=== PATIENT | male | born 1950 | race Caucasian/White ===

== ENCOUNTER → 2018-01-01 | Outpatient (CLI) | payer OTHER ==
[~2018-01-01] MED LIST: IOPAMIDOL (ISOVUE 370) 100 ML BTL IV ONE
== END ==
LOC: FIMAGING 13:19
PROVIDERS: ATTEND Internal Medicine Cardiovascular Disease
DX: Z03.89 Encounter for observation for other suspected diseases and conditions ruled out (principal)
CPT/HCPCS: 82565-PO; Q9967

== ENCOUNTER 2018-01-08 11:19 | Observation (INO) | payer OTHER ==
[2018-01-08] MEDS ORDERED: NS 1,000 ML IV ONE (11:22)
[2018-01-08 12:04] LABS: PLATELET COUNT 168 10^3/uL (150-400)
[2018-01-08] MEDS ORDERED: LIDOCAINE 1% 300 MG/30 ML SDV ONE (12:07)
[2018-01-08] MEDS ORDERED: HEPARIN 10,000 UNIT/10 ML MDV (1,000 UNIT/ML) ONE (12:07)
[2018-01-08] MEDS ORDERED: HEPARIN/DEXTROSE 25,000 UNIT/500 ML BAG ONE (12:07)
[2018-01-08] MEDS ORDERED: BUPIVACAINE 0.75% 10 ML SDV ONE (12:08)
[2018-01-08] MEDS ORDERED: IOPAMIDOL (ISOVUE-300) 100 ML BTL ONE (12:08)
[2018-01-08 12:11] LABS: INR 1.04 (0.83-1.16); PROTIME(PATIENT) 13.8 SEC (12.0-15.0)
--- NOTE | 2018-01-08 12:47 | PDGENHP ---
History & Physical Chief Complaint: symptomatic afib Relevant Physical Exam: s1s2. cta. ao3 Cardiorespiratory Assessment: for cb pvi
[2018-01-08] MEDS ORDERED: MIDAZOLAM 2 MG/2 ML VIAL IVP ONE (13:02)
--- NOTE | 2018-01-08 13:04 | PDANEPAE ---
ANE History of Present Illness afib ep ANE Past Medical History - Cardiovascular History Hx Hypertension: No Hx Arrhythmias: Yes Hx Chest Pain: No Hx Coronary Artery / Peripheral Vascular Disease: No Hx CHF / Valvular Disease: No Hx Palpitations: No - Pulmonary History Hx COPD: No Hx Asthma/Reactive Airway Disease: No Hx Recent Upper Respiratory Infection: No Hx Oxygen in Use at Home: No Hx Sleep Apnea: No - Neurologic History Hx Cerebrovascular Accident: No Hx Seizures: No Hx Dementia: No - Endocrine History Hx Diabetes: No Hypothyroid: No Hyperthyroid: No - Renal History Hx Renal Disorders: No - Liver History Hx Hepatic Disorders: No - Neurological & Psychiatric Hx Hx Neurological and Psychiatric Disorders: No - Chronic Pain History Chronic Pain: No ANE Review of Systems Review of Systems: - Exercise capacity Exercise capacity: >=4 METS ANE Patient History - Allergies Allergies/Adverse Reactions: Penicillins Allergy (Verified 01/04/18 09:55) Unknown - Home Medications Home Medications: Cholecalciferol (Vitamin D3) [Vitamin D3] 4,000 unit PO DAILY 04/23/14 [Last Taken 01/07/18 07:00] Tadalafil [Cialis] 2.5 mg PO DAILY 04/23/14 [Last Taken 01/05/18 23:00] Apixaban [Eliquis] 5 mg PO BID 01/04/18 [Last Taken 01/05/18 20:00] Diltiazem HCl [Cartia Xt] 120 mg PO DAILY 01/04/18 [Last Taken 01/07/18 07:00] Herbals/Supplements -Info Only 1 ea PO DAILY 01/04/18 [Last Taken 01/07/18 07:00 ] Omeprazole 20 mg PO DAILY 01/04/18 [Last Taken 01/07/18 07:00] - NPO status NPO Status: no food or drink >8 hours - Anes Hx Anes Hx: no prior problems - Smoking Hx Smoking Status: Never smoked ANE Labs/Vital Signs - Labs Result Diagrams: 01/08/18 11:50 01/08/18 11:50 - Vital Signs Height: 180.34 cm Weight: 90.718 kg ANE Physical Exam - Airway Mallampati Score: Class 2 Mouth exam: normal dental/mouth exam - Pulmonary Pulmonary: no respiratory distress - Cardiovascular Cardiovascular: regular rate and rhythym - ASA Status ASA Status: II ANE Anesthesia Plan Anesthesia Plan: general endotracheal anesthesia
[2018-01-08] MEDS ORDERED: ROCURONIUM 50 MG/5 ML VIAL ONE (13:42)
[2018-01-08] MEDS ORDERED: DEXAMETHASONE 4 MG/ML VIAL ONE (13:42)
[2018-01-08] MEDS ORDERED: PROPOFOL/EMULSION 500 MG/50 ML BOTTLE IV ONE (13:42)
[2018-01-08] MEDS ORDERED: SUCCINYLCHOLINE CHLORIDE 200 MG/10 ML SYR IVP ONE (13:42)
[2018-01-08] MEDS ORDERED: fentaNYL 100 MCG/2 ML INJ ONE (13:42)
[2018-01-08] MEDS ORDERED: DESFLURANE 240 ML BOTTLE IH ONE (14:52)
[2018-01-08] MEDS ORDERED: PHENYLEPHRINE 10 MG/ML SDV ONE (14:55)
[2018-01-08] MEDS ORDERED: PROPOFOL 200 MG/20 ML VIAL ONE (15:27)
[2018-01-08] MEDS ORDERED: PROTAMINE SULFATE 50 MG/5 ML VIAL IVP ONE (15:53)
[2018-01-08] MEDS ORDERED: ONDANSETRON 4 MG/2 ML VIAL ONE (15:56)
[2018-01-08] MEDS ORDERED: SUGAMMADEX SODIUM 200 MG/2 ML VIAL IVP ONE (15:56)
--- NOTE | 2018-01-08 16:18 | EPPROC ---
Electrophysiology Procedure Note: ELECTROPHYSIOLOGIC STUDY AND BALLOON-CATHETER MEDIATED CRYOABLATION FOR PAROXYSMAL ATRIAL FIBRILLATION Procedures performed: 09021-80 EP evaluation with RA/RV/LA pace/record, with arrhythmia induction 31655-45 EP evaluation with RA/RV pace record, insert/reposition catheter, with arrhythmia induction 87418 Atrial fibrillation ablation Intracardiac echocardiogram Transseptal puncture Fluoroscopy INDICATION: Paroxysmal atrial fibrillation PROCEDURE: The patient arrived in the Electrophysiology Laboratory in the fasting state. The right groin, left groin and right infraclavicular area were prepped and draped in the usual sterile fashion. Anesthesiologist administered general anesthesia Dr. Stacy Patrick . All catheters were placed percutaneously using the Seldinger technique and advanced into position under fluoroscopic guidance. One #7 Italian deflectable octapolar electrode catheter was placed in the His-bundle position via the left femoral vein (2mm spacing, IVC electrode for unipolar recordings). This catheter was placed in the coronary sinus after transseptal puncture and later placed in the SVC-R subclavian vein junction to pace the right phrenic nerve during right pulmonary vein ablation. One #8 Italian AcuNaV ultrasound catheter was placed in the left femoral vein and advanced into the right atrium. One #4 Italian sheath was inserted into the left femoral artery via percutaneous technique and used for continuous arterial blood pressure monitoring and intermittent ACT determination. Programmed stimulation was performed from the right atrium, left atrium (CS) and right ventricle. There was no evidence of AV accessory pathway. Intracardiac echo evaluation of the left atrium and pulmonary veins was performed. Baseline ACT was drawn and heparin bolus was administered and heparin drip was started prior to transseptal puncture. ACT was checked every 15 minutes and maintained in the range of 350-400 seconds. One 14Fr short sheath was placed in the right femoral vein. One 8Fr SL1 sheath was advanced into the right atrium via the 14Fr short sheath. Transseptal puncture was performed under intracardiac ultrasound, fluoroscopic and hemodynamic guidance placing the sheath into the left atrium. Averill RF needle ( C0 curve) was used. The mean left atrial pressure was 9 mmHg. 3D map of left atrial and pulmonary veins was performed using PentaRay catheter. The SL1 sheath was exchanged for a Medtronic Flexcath sheath using an Amplatz stiff guide wire. A 28 mm Cryoballoon catheter with a 20 mm Achieve catheter was placed via the sheath into the left atrium. Intracardiac ultrasound and PV angiograms were used to assist in placing the mapping catheter at the antrum of the pulmonary veins. All pulmonary veins were isolated successfully using cryoballoon ablation using freeze/thaw/freeze cycles at 2-3-minute intervals, with good [id number] of isolation. Coumadin ridge/Ligament of Danny region was ablated. Pre and post pulmonary vein recordings were measured on the spiral Achieve catheter to ensure complete pulmonary vein isolation. During the right-sided ablation, phrenic nerve pacing was performed to assess the phrenic nerve strength ( manually and with ICE visualization of liver movement during phrenic capture) and the phrenic nerve was intact throughout the right-sided ablation and at the end of the procedure. An esophageal temperature probe (12 electrode, Circa) was placed by the anesthesiologist at the beginning of the procedure. Esophageal temperature was monitored continuously Cryoapplications 5 total cryoablation time 900s. ICE imaging post ablation was consistent with pre ablation imaging with no changes noted, moreover there was no left atrial/left ventricular thrombus and no pericardial effusion. The catheters were withdrawn. Protamine was given. The sheaths were removed and subcutaneous pursestring suture and manual pressure was used for hemostasis. The patient was recovered from anesthesia. There were no complications. The patient was arousable and moving all four extremities at the end of the procedure. CONCLUSIONS: 1. Paroxysmal atrial fibrillation. 2. Successful pulmonary vein isolation procedure (left and right pulmonary vein antrum) using cryoballoon ablation. 3. No apparent complications. Patient Problems: Problems Problem Status Onset Atrial fibrillation Acute
[2018-01-08] MEDS ORDERED: ALBUTEROL 3 ML DEYVIAL IH PRN (16:42)
[2018-01-08] MEDS ORDERED: ONDANSETRON 4 MG/2 ML VIAL IVP PRN (16:42)
[2018-01-08] MEDS ORDERED: NALOXONE HCL 0.4 MG/ML INJ IVP PRN (16:42)
[2018-01-08] MEDS ORDERED: fentaNYL 100 MCG/2 ML INJ IVP PRN (16:42)
--- NOTE | 2018-01-08 16:43 | POSTANESTH ---
Post Anesthetic Evaluation Cardiovascular Status: Normal, Stable Respiratory Status: Normal, Stable Level of Consciousness/Mental Status: Can Participate in Eval Pain Control: Adequate, Prn Tx Ordered Nausea/Vomiting Control: Adequate, Prn Tx Ordered Complications Possibly Related to Anesthesia: None Noted
[2018-01-09 04:25] LABS: PLATELET COUNT 178 10^3/uL (150-400)
[2018-01-09] MEDS ORDERED: APIXABAN 5 MG TAB PO SCH (09:00)
[2018-01-09] MEDS ORDERED: PANTOPRAZOLE SODIUM 40 MG TAB PO SCH (09:00)
[2018-01-09 12:11] VITALS: BP 96/55
--- NOTE | 2018-01-09 13:14 | CPEKG ---
Test Reason : OPEN Blood Pressure : / mmHG Vent. Rate : 059 BPM Atrial Rate : 060 BPM P-R Int : 177 ms QRS Dur : 135 ms QT Int : 446 ms P-R-T Axes : 044 -72 036 degrees QTc Int : 442 ms Sinus rhythm RBBB and LAFB Sinus rhythm has replaced atrial fibrillation noted on last ECG Confirmed by Lazaro Gtz ([id number]) on 01/09/2018 1:14:22 PM Referred By: Confirmed By:Lazaro Gtz
--- NOTE | 2018-01-09 13:18 | CPEKG ---
Test Reason : OPEN Blood Pressure : / mmHG Vent. Rate : 065 BPM Atrial Rate : 065 BPM P-R Int : 185 ms QRS Dur : 140 ms QT Int : 424 ms P-R-T Axes : 042 -58 013 degrees QTc Int : 441 ms Sinus rhythm RBBB and LAFB Confirmed by Lazaro Gtz ([id number]) on 01/09/2018 1:17:53 PM Referred By: Confirmed By:Lazaro Gtz
--- NOTE | 2018-01-09 13:21 | GDS ---
[f rep st] DISCHARGE SUMMARY SUPERVISING CERTIFIED NUTRITIONIST: Andi Chin MD. DIAGNOSIS ADMISSION: 1. Paroxysmal atrial fibrillation. 2. Right bundle branch block. DISCHARGE DIAGNOSIS: 1. Paroxysmal atrial fibrillation. 2. Status post cryoballoon pulmonary vein isolation procedure for atrial fibrillation ablation. 3. Right bundle branch block. PROCEDURES PERFORMED DURING HOSPITALIZATION: 1. Electrocardiogram. 2. Electrophysiology study. 3. Pulmonary vein isolation procedure using cryoballoon ablation. 4. Echocardiogram. BRIEF HISTORY: Please see H and P. Briefly, the patient is a 67-year-old male with noted history of right bundle branch block, some paroxysmal atrial fibrillation. The patient has been noted to have a history of atrial fibrillation for 10-15 years. Initially had tried beta-blockers, but did not srinivas erate them. He had been on diltiazem, but unfortunately been noted to have breakthrough arrhythmias. He has recently seen Dr. Chin, with discussion about further treatment. Patient had been given the o ptions of trying antiarrhythmic therapy with diltiazem, or cryoballoon ablation. Patient chose to un dergo cryoballoon ablation for atrial fibrillation ablation. HOSPITAL COURSE: Patient admitted through the CVC, prepped for procedure, and taken to the electroph ysiology lab. There, Dr. Chin performed electrophysiology procedure, identifying atrial fibrillation, and then performing pulmonary vein isolation procedure using cryoballoon ablation. No apparent comp lications. Patient was transferred to the ICU for overnight observation. There, he has maintained s inus rhythm with no malignant arrhythmias or pauses by continuous cardiac monitoring. He has been up walking in the unit today with no symptoms, denying any chest pain, shortness of breath, palpitation s, or lightheadedness. PHYSICAL EXAMINATION: GENERAL: Done today, medium built, well-groomed male. He is alert and oriented to person, place, time, situation. Appears to be under no acute distress. CURRENT VITAL SIGNS: Blood pressure of 96/55, heart rate of 63, respirations 12, saturating 96% on room air. LINNEA NT: Head is normocephalic. Lips and tongue are pink, moist, with no signs of cyanosis. Conjunctiva e pink. NECK: Trachea is midline, +2 carotid pulses bilateral. No auscultated bruits. No jugular v ein distention. RESPIRATORY: Lungs are clear to auscultation, no rhonchi, rales or wheezes. No acc essory muscle use. No intercostal muscle retraction noted. CARDIAC: Regular rate, regular rhythm, S1, S2. No S3, S4, gallops, rubs or murmurs noted. ABDOMEN: Soft, nontender, bowel sounds x4 quadra nts. No organomegaly. No palpable masses. SKIN: Tyhee, warm, dry. No cyanosis. No clubbing. No perip heral edema. VASCULAR: +2 carotids bilateral, +2 radials bilateral, +2 dorsal pedal and posterior t ibial pulses bilateral. SKIN: Procedural sites, bilateral groin sites, with no redness, swelling, d rainage, ecchymosis, or hematoma. Sutures: Venous sutures have been removed by ICU staff, intact. No auscultated bruits noted over either side. EXTREMITIES: CMS checks within normal limits to both lower extremities. LABORATORY STUDIES: Laboratory studies drawn today show WBC of 13.53, hemoglobin of 14.0, hematocrit of 40.9, platelet count of 178. Sodium 141, potassium 4.3, chloride 110, CO2 23, BUN 19, creatinine 0.7, glucose 109, calcium 8.8. Troponin of 7.530. Note, expected to have elevated cardiac enzymes st atus post ablation. Yesterday, magnesium was noted to be at 2.3. STUDIES: Electrophysiology and ablation procedure as mentioned above. Preliminary of echocardiogram done today showing normal LV systolic function with no wall motion abnormalities, no pericardial effu aisha. Electrocardiogram done this morning showing sinus rhythm with right bundle branch block, left anterior fascicular block. DISCHARGE DISPOSITION: Patient will be discharged home in stable condition. He is under activity re strictions of not lifting more than 10 pounds for the next week and no strenuous activity for the nex t 2 weeks. DISCHARGE MEDICATIONS: Please see discharge medication reconciliation sheet. Note, patient has been started on anticoagulation of Eliquis. He has been asked to not use his diltiazem any further, but to hold onto the medication, in case he may need to be restarted on it. No change in the rest of his home medications. DISCHARGE INSTRUCTIONS: Post electrophysiology discharge instructions went over with the patient inc luding activity restrictions, monitoring for signs of infection, bleeding precautions, and medication compliance. The patient has a followup appointment set with Dr. Chin in 2 weeks' time. At the time of discharge, patient verbalizes all discharge instructions and has no questions or concerns. He has told that if any problems or concerns come up post discharge, he is to notify our office or return t o the hospital. Total time spent on discharge: Greater than 30 minutes. /[id number]/MODL
--- NOTE | 2018-01-10 15:46 | ECHO ---
[email or web address] [address] [address] Main: [phone] Fax: Transthoracic Echocardiogram Name: JORY RODRÍGUEZ MR#: [id number] Study Date: 01/09/2018 Study Time: 07:25 AM Date of : 1950 Age: 67 year(s) Height: 180.3 cm (71 in.) Weight: 90.72 kg (200 lb.) BSA: 2.11 m2 Gender: Male Examination: Echo Indication: F/U Post EP Study Image Quality: Adequate Contrast: Requested by: Andi Chin BP: / Heart Rate: Rhythm: Indication: F/U Post EP Study Procedure Staff Brick Pointer: Felipa Mares RDCS Reading Physician: Timur Hickman MD Requesting Provider: Conclusions: Normal size left ventricle. The ejection fraction is visually estimated to be 60 %. No regional wall motion abnormality. Normal diastolic LV function. The left atrium is mildly dilated. There is flow seen across the interatrial septum consistent with transseptal puncture procedure. Mild mitral valve regurgitation is present. Trivial aortic valve regurgitation. Mild tricuspid regurgitation is present. The pulmonary artery pressure is normal. No pericardial effusion. No significant change compared to 01/01/2018. Measurements: Chambers Valvular Assessment AV/MV Valvular Assessment TV/PV Normal Normal Normal Name Value Range Name Value Range Name Value Range Ao Rachel (2D): 2.9 cm (1.4 cm-2.6 AV Vmax: 1.33 m/s (1 m/s-1.7 PV Vmax: 0.99 m/s (0.6 m/s-0.9 cm) m/s) m/s) IVSd (2D): 0.8 cm (0.6 cm-1.1 AV maxP mmHg ( - ) PV PGmax: 4 mmHg ( - ) cm) AV meanP mmHg ( - ) LVDd (2D): 4.8 cm (4.2 cm-5.9 RHETT (VTI): 2.8 cm ( - ) cm) MV E Vmax: 0.86 m/s ( - ) LVDs (2D): 3.1 cm (2.1 cm-4 MV A Vmax: 0.64 m/s ( - ) cm) MV E/A: 1.34 ( - ) LVPWd (2D): 0.9 cm (0.6 cm-1 cm) MV PHT: 0.072 s ( - ) LVOTd 2.0 cm 2.0 cm mm MVA (PHT): 3.1 s ( - ) LVEF (BP): 68 % (>=55 %) Visual EF: 60 % Patient: JORY RODRÍGUEZ Study Date: 01/09/2018 Page 1 of 2 07:25 AM RVDd(2D): 3.0 cm (1.9 cm-3.8 cmmm) Continued Measurements: Chambers Valvular Assessment AV/MV Name Value Name Value LADs: 4.1 cm MV DecTime: 236 m/s LADs Lon.6 cm MV E' Septal: 0.07 m/s LA Area: 23.7 cm2 MV E/E' Septal: 12.40 LA Volume: 70 ml MV E/E' Lateral: 8.70 LA Volume Index: 33.2 ml/m2 RA Area: 18.2 cm2 Additional Vessels Name Value Ao Ascendin.0 cm Inferior Vena Cava: 1.8 cm Findings: Left Ventricle: Normal size left ventricle. No LV hypertrophy. Normal global systolic LV function. The ejection fraction is visually estimated to be 60 %. No regional wall motion abnormality. Normal diastolic LV function. Right Ventricle: Normal size right ventricle. Normal RV function. Left Atrium: The left atrium is mildly dilated. There is flow seen across the interatrial septum consistent with transseptal puncture procedure. Right Atrium: The right atrium is normal in size. Mitral Valve: The mitral valve is normal in appearance and function. Mild mitral valve regurgitation is present. No mitral stenosis is present. Aortic Valve: The aortic valve is tri-leaflet. Trivial aortic valve regurgitation. No aortic valve stenosis is present. Tricuspid Valve: The tricuspid valve is normal in appearance and function. Mild tricuspid regurgitation is present. The pulmonary artery pressure is normal. Pulmonic Valve: The pulmonic valve is normal in appearance and function. There is no pulmonic regurgitation seen. Aorta: The aorta is normal. Normal size aortic root measuring 2.9 cm. Normal size ascending aorta measuring 3.0 cm. IVC: The IVC is normal sized. Pericardium: No pericardial effusion. No pleural effusion. (No Signature Object) Patient: JORY RODRÍGUEZ Study Date: 01/09/2018 Page 2 of 2 07:25 AM [id number]
== END 2018-01-09 12:35 | disposition home or self-care (01) ==
LOC: FCATH 11:19 → F2N 16:15
PROVIDERS: ADMIT Internal Medicine Cardiovascular Disease; ATTEND Internal Medicine Cardiovascular Disease
PROC: 025S3ZZ Destruction of Right Pulmonary Vein, Percutaneous Approach (ICD-10-PCS; principal; 2018-01-08)
DX: I48.0 Paroxysmal atrial fibrillation (principal); I45.10 Unspecified right bundle-branch block
CPT/HCPCS: 93005; 93306; 93312; 93613; 93656; 93662; C1893; G0378; C1730; C1731; C1732; C1733; C1759; C1766; J0330; J1100; J1644; J2250; J2370; J2405; J2704; J2720; J3010; Q9967